=== PATIENT | male | born 1960 | race Caucasian/White ===

== ENCOUNTER → 2016-07-22 | Outpatient (CLI) | payer MEDICARE, OTHER ==
[2016-07-22 08:24] LABS: ALBUMIN 3.7 GM/DL (3.2-5.2); ALBUMIN/GLOBULIN RATIO 1.23 (1.00-1.93); ALKALINE PHOSPHATASE 123 U/L (45-117); ALT/SGPT 28 U/L (12-78); ANION GAP 4 MEQ/L (8-16); AST/SGOT 16 U/L (15-37); BILIRUBIN,TOTAL 0.3 MG/DL (0.2-1.0); BLOOD UREA NITROGEN 14 MG/DL (7-18); CALCIUM LEVEL 8.6 MG/DL (8.5-10.1); CARBON DIOXIDE LEVEL 30 MEQ/L (21-32); CHLORIDE LEVEL 107 MEQ/L (98-107); CHOLESTEROL LEVEL 247 MG/DL (<200); CREATININE FOR GFR 1.13 MG/DL (0.70-1.30); GLOMERULAR FILTRATION RATE > 60.0 (>56); GLUCOSE, FASTING 93 MG/DL (70-105); POTASSIUM SERUM 4.1 MEQ/L (3.5-5.1); SODIUM LEVEL 141 MEQ/L (136-145); TOTAL PROTEIN 6.7 GM/DL (6.4-8.2); TRIGLYCERIDES LEVEL 109 MG/DL (<150)
== END ==
LOC: M LAB 06:35
PROVIDERS: ATTEND Family Medicine
DX: E78.2 Mixed hyperlipidemia (principal); E55.9 Vitamin D deficiency, unspecified; N52.9 Male erectile dysfunction, unspecified

== ENCOUNTER → 2018-11-10 | Outpatient (REF) | payer MEDICARE | LOC: M SFHCPLAZ 11:52 | PROVIDERS: ATTEND Nurse Practitioner Adult Health | DX: R13.10 Dysphagia, unspecified (principal) | CPT/HCPCS: 36415; 84443; G0463 ==

== ENCOUNTER → 2018-11-24 | Outpatient (CLI) | payer MEDICARE ==
[~2018-11-24] MED LIST: ISOVUE-370 76% 100ML VIAL (Q9967) As Ordered ONE
--- NOTE | 2018-11-24 09:40 | REP ---
CT NECK WITH CONTRAST: HISTORY: Sore throat. CONTRAST: Isovue 370, 75 mL. COMPARISON: 02/24/2013 Calcification is present in the right tonsil. This is secondary to previous inflammatory disease. The naso-, lyn-, and hypopharynx, larynx and subglottic trachea are otherwise normal in appearance. The salivary and thyroid glands are normal in size and density. Small lymph nodes less than 1 cm in size are present in the internal jugular chains, posterior triangles, and submandibular areas. A well circumscribed hypodense mass is present in the right supraclavicular area, inferolateral to and contiguous with right supraclavicular area. The mass measures 1.3 cm in transverse x 2.2 cm in AP x 3.6 cm in cephalocaudal dimensions and slightly decreased in size compared to the previous study. The mass abuts the right common carotid and right subclavian arteries and right internal jugular vein. Atherosclerotic calcification is present at the left carotid bifurcation. Degenerative change is present in the cervical spine. Scarring is present in the lung apices. The visualized sinuses are clear. IMPRESSION: There has been slight decrease in size of right supraclavicular area mass compared to the previous study. Electronically Signed by Isaak Wilson MD 11/24/2018 09:56 A
== END ==
LOC: M RAD 08:06
PROVIDERS: ATTEND Otolaryngology
DX: Z72.0 Tobacco use (principal)
CPT/HCPCS: 70491; Q9967

== ENCOUNTER → 2018-12-21 | Outpatient (CLI) | payer MEDICARE ==
[~2018-12-21] MED LIST changes: +CVS50CAP PO; +D 202000 PO; +IBUP200C25 PO; -ISOVUE-370 76% 100ML VIAL (Q9967) As Ordered ONE; +NEXI1CAP4 PO
--- NOTE | 2018-12-21 16:14 | REP ---
COOKIE SWALLOW The procedure was performed under the direct supervision of Dr. Goetz. The procedure was performed with Zoya Nichols from speech pathology present. 5 ml aliquots of thin, pudding, soft solid, fruit, and solid consistency barium, as well as a barium pill were administered. There is no evidence of penetration or aspiration. A detailed report of this examination will be provided by speech pathology. 1 minute of fluoroscopy time was utilized for this procedure. Reviewed by SCOTT Carmen 12/21/2018 04:03 P Electronically Signed by Marco Goetz MD 12/21/2018 04:06 P
== END ==
LOC: M ST 14:56
PROVIDERS: ATTEND Otolaryngology
DX: R13.10 Dysphagia, unspecified (principal)

== ENCOUNTER 2019-05-11 13:17 | Day surgery (SDC) | payer MEDICARE ==
[~2019-05-11] VITALS: Ht 177.8 cm; Wt 57.2 kg
[~2019-05-11 13:17] MED LIST changes: +LIDOCAINE 2% INJ 100 MG/5 ML SDV (FOR ANES.) As Ordered ONE; +NS 1,000 ML IV ONE; +propofoL 200 MG/20 ML VIAL As Ordered ONE
[2019-05-11] MEDS ORDERED: fentaNYL 100 MCG/2 ML INJECTION (J3010) As Ordered ONE (14:24)
[2019-05-11 15:25] VITALS: BP 130/69
--- NOTE | 2019-05-11 15:25 | ROOR ---
Patient Name: Horace Rubio Procedure Date: 05/11/2019 2:13 PM Date of : 1960 Age: 58 Room: [facility] Gender: Male Note Status: Finalized Procedure: Upper GI endoscopy Indications: Dysphagia, Odynophagia, Heartburn Providers: Ken WATSON MD Referring MD: Stephanie WILEY NP Requesting Provider: Medicines: Monitored Anesthesia Care Complications: No immediate complications. Procedure: Pre-Anesthesia Assessment: - The heart rate, respiratory rate, oxygen saturations, blood pressure, adequacy of pulmonary ventilation, and response to care were monitored throughout the procedure. The Endoscope was introduced through the mouth, and advanced to the second part of duodenum. The upper GI endoscopy was performed with difficulty due to a partially obstructing mass. Successful completion of the procedure was aided by withdrawing the scope and replacing with the 'babyscope'. The patient tolerated the procedure well. Findings: A large, ulcerating mass was found at the gastroesophageal junction, 39 cm from the incisors. The mass was partially obstructing and partially circumferential (involving two thirds of the lumen circumference). This was biopsied with a cold forceps for histology. The exam of the stomach was otherwise normal. The examined duodenum was normal. Impression: - Partially obstructing, likely malignant esophageal tumor was found at the gastroesophageal junction. Biopsied. - The stomach was otherwise normal. - Normal examined duodenum. Recommendation: - Await pathology results. - Full liquid diet. - Refer to an oncologist at appointment to be scheduled. - Perform CT scan (computed tomography) of the chest with contrast at appointment to be scheduled. - Perform CT scan (computed tomography) of the abdomen with contrast at appointment to be scheduled. Ken Watson MD Ken WATSON MD 05/11/2019 3:24:59 PM Electronically signed by Ken WATSON MD Number of Addenda: 0 Note Initiated On: 05/11/2019 2:13 PM Estimated Blood Loss: Estimated blood loss: none.
== END 2019-05-11 15:40 | disposition home or self-care (01) ==
LOC: M OPP 13:17
PROVIDERS: ATTEND Internal Medicine Gastroenterology
DX: C15.9 Malignant neoplasm of esophagus, unspecified (principal); R13.10 Dysphagia, unspecified; R12 Heartburn; Z88.1 Allergy status to other antibiotic agents; F17.210 Nicotine dependence, cigarettes, uncomplicated
CPT/HCPCS: 43239; 88305; J3010

== ENCOUNTER → 2019-05-17 | Outpatient (CLI) | payer MEDICARE ==
[~2019-05-17] MED LIST changes: +GASTROGRAFIN SOLUTION 30ML (Q9963) As Ordered ONE; +ISOVUE-370 76% 100ML VIAL (Q9967) As Ordered ONE; -LIDOCAINE 2% INJ 100 MG/5 ML SDV (FOR ANES.) As Ordered ONE; -NS 1,000 ML IV ONE; -propofoL 200 MG/20 ML VIAL As Ordered ONE
--- NOTE | 2019-05-17 18:24 | REP ---
CT CHEST WITH CONTRAST: 05/17/2019. Clinical history: Near obstructing malignant appearing mass. Distal esophagus. Technique: Isovue 371 100 ml as of IV with scanning through the chest and both coronal and sagittal reconstructions provided. Comparison: CT chest 02/24/2013. Findings: Lung orellana are hyperinflated. There is apical pleuroparenchymal scarring bilaterally. There are a few scattered areas of pleural scarring or plaques bilaterally, unchanged. The upper lung zones. Mild cylindrical bronchiectatic changes are again seen. No effusion, acute infiltrate, parenchymal lung mass or pulmonary nodules. There is swelling one small bullae in the left lower lobe unchanged about 1.6 cm. Heart is not enlarged and no pericardial thickening or effusion. The aorta has some calcifications but no aneurysm or dissection. There is a soft tissue mass at the GE junction. There is a vertical length of 4.7 cm, transverse diameter of 3.1 cm and AP diameter is 5 cm and involves both sides of the GE junction and may be arising from the stomach or distal esophagus. Certainly involves the gastric fundus superiorly and medially extending posterior and anterior from the GE junction. There is no seven carinal, precarinal, AP window, hilar or mediastinal pathologic sized adenopathy. Prevascular space clear. No axillary or supraclavicular mass noted. The bone windows show the sternum, manubrium, medial clavicles, humeral heads and scapula grossly intact. The ribs and spine show no acute findings. Upper abdomen will be discussed in detail on the CT abdomen report. Impression: 1. There is an obstructing mass at the GE junction involving the distal esophagus and the fundus vertical length of at least 4.7 cm x 3.1 by there is involvement of the medial wall of the fundus below this. Esophagus above the mass was intact. There is no adenopathy in the mediastinum. 2. No parenchymal lung nodules or masses. 3. Bones intact. Electronically Signed by Sotero Coreas MD 05/17/2019 06:15 P
--- NOTE | 2019-05-17 19:02 | REP ---
CT ABDOMEN AND PELVIS WITH IV AND ORAL CONTRAST: 05/17/2019. Clinical history: An obstructing gastroesophageal junction mass. Comparison: CT chest today, CT chest 02/24/2013. Technique: Bolus of 100 mL Isovue 370, scanning through the abdomen and pelvis with coronal and sagittal reconstructions. Oral Gastrografin mixture 10 mL in 290 mL flavored water for two boluses as our bowel contrast protocol. Findings: Lung bases are clear and without pleural effusion. There is an obstructing mass at the GE junction involving both the distal esophagus and the gastric fundus. The mass is at least 5.1 cm AP by 4.7 cm vertical by 4.7 cm transverse on the abdominal CT and does involve some of the superior and medial wall of the gastric fundus. Stomach is distended with air. Oral contrast in mid to distal jejunum and extending to the distal left colon. Stool and gas are scattered through the colon without signs of colitis, diverticulitis or mass. There is a paucity of retroperitoneal and intraperitoneal fat indicating significant weight loss. No abdominal ascites. I see no perforation or free air on lung window review of all CT slices abdomen and pelvis. The liver is not enlarged. Spleen is not enlarged and there is no hepatic or splenic mass, intrahepatic biliary dilatation nor adjacent ascites. Adrenal glands grossly intact. Kidneys show symmetric enhancement without stone, cyst, solid mass or hydronephrosis. There is no hydroureter or ureteral stone. There is diffuse atherosclerotic calcifications aorta and branches. No periaortic or other retroperitoneal/intra-abdominal lymphadenopathy. Bone windows show advanced degenerative disc changes at L5-S1 with vacuum phenomenon narrowing the disc space and osteophytes anteriorly and posteriorly. The other disc space heights were intact. All vertebral body heights intact. No spondylolysis or spondylolisthesis. Visible ribs intact. CT pelvis: The sacrum, SI joints, pelvis and hips show minor degenerative changes but no destructive lesion or fractures. There is no pelvic lymphadenopathy or mass. Contrast filled small bowel loops are seen to the cecum. I do not see bladder mass, wall thickening or stone. Multiple pelvic phleboliths noted. No ventral or inguinal hernia. Impression: 1. GE junction mass, possibly arising from the esophagus or fundus without adenopathy in the upper abdomen or visible on this study. There is some prominent vessels in the gastrohepatic ligament region but I cannot separate out definite adenopathy. There is a paucity of fat to highlight lymph nodes however. 2. Liver and spleen without focal lesion. Adrenal glands intact. Kidneys without hydronephrosis or mass. 3. Atherosclerotic calcifications aorta without aneurysm. 4. Colon and small bowel loops without acute finding. 5. Bones without metastatic disease or acute finding. There are degenerative changes greatest L5-S1. Electronically Signed by Sotero Coreas MD 05/17/2019 08:20 P
== END ==
LOC: M RAD 15:26
PROVIDERS: ATTEND Internal Medicine Gastroenterology
DX: C15.5 Malignant neoplasm of lower third of esophagus (principal); K22.2 Esophageal obstruction
CPT/HCPCS: 71260; 74177; Q9963; Q9967

== ENCOUNTER → 2019-05-31 | Outpatient (CLI) | payer MEDICARE ==
[~2019-05-31] MED LIST changes: -GASTROGRAFIN SOLUTION 30ML (Q9963) As Ordered ONE; -ISOVUE-370 76% 100ML VIAL (Q9967) As Ordered ONE; +LIDO2.5C15 TOP; +META28.32 PO; +NICO14DI31 TOP; +ONDA8TAB8 PO; +OXYC1SOL3 PO; +TGT160SU PO
--- NOTE | 2019-05-31 10:40 | REP ---
PET/CT: HISTORY: Staging esophageal malignancy. COMPARISONS: Comparison CT chest May 17, 2019. Comparison CT abdomen pelvis May 17, 2019. TECHNIQUE: 48 minutes following the intravenous injection of a 9.23 mCi dose of F-18 FDG, three-dimensional PET scintigraphy is acquired from the skull base to the proximal thighs. Triplanar noncontrast CT scanning is acquired through the same anatomic range for attenuation correction, and image registration with scan parameters optimized to minimize radiation exposure to the patient. PET scintigraphy and CT datasets were fused and displayed on a workstation with multiplanar and projection display capability. PET/CT FINDINGS: Head and neck soft tissues are unremarkable. There is hypermetabolic uptake in the known mass in the gastroesophageal junction. Maximum standard uptake value here is 5.76. There is no visible hypermetabolic adenopathy. No abnormal hypermetabolic uptake is seen within the thorax. Incidental note is made of a moderate size pneumoperitoneum and there is mild ascites in the pelvic reflections. The patient has a gastrostomy tube visible in the left upper quadrant. There is mild postoperative radiotracer in deposition in an area of slight swelling in the right anterior abdominal wall. There is uptake along the gastrostomy tube insertion site. These changes, including the pneumoperitoneum and hydroperitoneum are felt to be consistent with recent placement of the gastrostomy tube. This should be correlated with the surgical history as I am not able to directly ascertain when the gastrostomy tube was placed. IMPRESSION: There is hypermetabolic uptake at the known mass in the gastroesophageal junction. No other hypermetabolic metastatic focus is seen. Incidental note is made of a hydro pneumoperitoneum which is most compatible with recent placement of a gastrostomy tube. This should be correlated with the dates of surgical history which I am not able to directly ascertain from the provided documentation. Preliminary findings are provided at the morning of the study. Electronically Signed by Saad Timmons MD 05/31/2019 04:06 P
== END ==
LOC: M PLARAD 07:25
PROVIDERS: ATTEND Physician Assistant Surgical
DX: C15.8 Malignant neoplasm of overlapping sites of esophagus (principal)

== ENCOUNTER → 2019-06-27 | Outpatient (CLI) | payer MEDICARE, BC ==
[~2019-06-27] MED LIST changes: -LIDO2.5C15 TOP; -ONDA8TAB8 PO
--- NOTE | 2019-06-28 13:19 | RADONC ---
RADIATION ONCOLOGY CONSULTATION NOTE DATE: 06/27/2019 CHART NUMBER: [id number] DIAGNOSIS: Gastroesophageal junction adenocarcinoma. STAGE: IIIB, T3, N1, M0, grade 3. ECOG PERFORMANCE STATUS: 1. CONSULTATION NOTE: Mr. 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 HISTORY OF PRESENT ILLNESS: The patient was in his usual state of health but sometime early last year he began developing some difficulty swallowing solid foods. This progressed until the fall when he began having difficulty swallowing liquids. A CT scan of the neck was done on 02/24/2013 and showed a 2.4 cm x 2.8 cm x 3.7 cm mass in the right supraclavicular area contiguous with the right thyroid lobe. This showed no change in size from previous study dated 07/04/2007. It was therefore stable for at least 5 years. The patient's symptoms progressed and he continued losing weight. He was seen by Dr. Watson and on 05/11/2019 upper endoscopy was undertaken. The patient was found to have a tumor involving the distal esophagus and gastroesophageal junction. Pathology revealed a poorly differentiated invasive adenocarcinoma. Endoscopic gastroduodenoscopy with endoscopic ultrasound was undertaken on June 21, 2019 and the patient was found to have a distant esophageal malignancy (stage IIIB). He has lost a significant amount of weight and today weighs 123.6 pounds. A feeding tube has been placed. PAST MEDICAL HISTORY: The patient's past medical history is largely noncontributory. He has been in general good health. ALLERGIES: The patient is allergic to ERYTHROMYCIN. SOCIAL HISTORY: The patient has a 45 pack-year smoking history having smoked for well over 30 years. FAMILY HISTORY: The patient's family history is positive for a father with prostate cancer which metastasized and an uncle with liver cancer. REVIEW OF SYSTEMS: The patient's review of systems is positive for a significant weight loss. His original weight was approximately 155 pounds about a year ago. He has difficulty swallowing even liquids. His review of systems is otherwise noncontributory. He denies nausea, vomiting, fevers, chills, night sweats, diplopia, headaches, anxiety or depression, anorexia, weight loss, visual disturbances, chest pain, urinary or bowel difficulties, bone pain, or neurological problems. PHYSICAL EXAMINATION: The patient is a cachectic, white male who appears chronically ill. HEENT exam: Is normocephalic, atraumatic. Extraocular movements are intact. There is no palpable cervical, supraclavicular, infraclavicular, axillary or inguinal lymphadenopathy present. His lungs have distant breath sounds bilaterally, but are generally clear to auscultation and percussion. His heart has regular rate and rhythm. His abdomen is benign with no hepatosplenomegaly, masses or tenderness. Skeletal examination reveals no tenderness to pressure or percussion of the bony skeleton. Extremities: Reveal no clubbing, cyanosis or edema. Neurologic exam: Is grossly intact to sensory and motor. ASSESSMENT: The patient is presenting to us today for consideration of external beam radiation therapy combined with chemotherapy as a therapeutic option. Following which he will be reevaluated at the [facility] in [place] by Dr. Denise Conde MD for possible resection. I do believe the patient is a candidate for this and I have so informed him. I have discussed with the patient in detail the potential benefits as well as possible acute and chronic sequelae of external beam radiation therapy. We have discussed the logistics of treatment planning, simulation and subsequent fractionated daily radiation treatments. I am scheduling the patient for the next available simulation slot and radiation treatments will begin subsequently. We will coordinate his care with his medical oncologist, Dr. Swanson. Thank you for allowing us to participate in the care of this very pleasant gentleman. cc: FANI Saravia MD Moshim Kukar, MD David Reindl, MD Bonnie Servage, YAMIL
== END ==
LOC: M ONCR 09:42
PROVIDERS: ATTEND Radiology Radiation Oncology
DX: C15.9 Malignant neoplasm of esophagus, unspecified (principal)

== ENCOUNTER → 2019-07-07 | Outpatient (CLI) | payer MEDICARE ==
[~2019-07-07] MED LIST changes: +LIDOCAINE 1% MDV 20ML VIAL As Ordered ONE; +MIDAZOLAM INJ 2 MG/2 ML VIAL (J2250) As Ordered ONE; +ceFAZolin 2 GM/D5W 50 ML IV BAG (J0690 PER 500MG) As Ordered ONE; +diphenhydrAMINE INJ 50MG/ML VIAL (J1200) As Ordered ONE; +fentaNYL 100 MCG/2 ML INJECTION (J3010) As Ordered ONE
--- NOTE | 2019-07-07 13:09 | IRHP ---
[facility] IR Pre-Procedure H & P General Date of Service: Jul 07, 2019 Procedure: Same Day Surgery Interval History and Physical I have seen the patient and reviewed last H & P performed within 30 days. There is no significant interval change. History of Present Illness Chief Complaint The patient is a 58-year-old male admitted with a reason for visit of Esophageal Ca. PRE-PROCEDURE DIAGNOSIS: esophageal ca HEART: normal rate. LUNGS: normal breathing at rest. ASA Classification ASA Classification: III-Severe systemic dis. Mallampati Score: II NPO: Yes Problems with prior sedation: No Obstructive Sleep Apnea: No Plan moderate sedation Allergies Coded Allergies: erythromycin base (Verified Allergy, Intermediate, TONGUE SWELLING, 04/27/19) Home Medications Scheduled Esomeprazole Magnesium (Nexium 24Hr), 20 MG PO DAILY, (Reported) Nicotine (Nicotine Patch), 1 PATCH TOP DAILY, (Reported) Psyllium Husk (with Sugar) (Metamucil Powder), 10 ML PO BID, (Reported) Scheduled PRN Docusate Sodium (Stool Softener), 50 MG PO DAILYPRN PRN for CONSTIPATION, (Reported) Oxycodone HCl (Oxycodone HCl), 5 MG PO DAILYPRN PRN for PAIN, (Reported) Miscellaneous Medications Acetaminophen (Children's Acetaminophen), 160 MG PO, (Reported) VS, I&O, 24H, Fishbone Vital Signs/I&O Vital Signs Date Time Temp Pulse Resp B/P (MAP) Pulse Ox O2 Delivery O2 Flow Rate FiO2 07/07/19 12:50 58 16 100 Nasal Cannula 2 07/07/19 11:56 98.0 DAVE HINSON MD Jul 07, 2019 13:09
--- NOTE | 2019-07-07 13:10 | POST-OPPD ---
Postoperative Procedure Note Date Of Procedure: Jul 07, 2019 Time Of Procedure: 13:09 PREOPERATIVE DIAGNOSIS: esophageal ca POSTOPERATIVE DIAGNOSIS: same FINDINGS: patent right IJ PROCEDURE: right side port placement SURGEON: susan ANESTHESIA: mod sed ESTIMATED BLOOD LOSS: < 5 ml COMPLICATIONS: none POSTOPERATIVE CONDITION: stable DAVE HINSON MD Jul 07, 2019 13:10
--- NOTE | 2019-07-07 13:20 | REP ---
IR Ultrasound and fluoroscopy-guided port placement. IR Ultrasound of the neck. IR Moderate sedation. Clinical information: Esophageal cancer. Physician: Dr. Dowell. Procedure: The patient was advised of the benefits, risks, and alternatives of the procedure and informed consent was obtained. A time-out was performed with verification of the patient's name, MRN, site of procedure and type of procedure to be performed. The patient was positioned in the supine position on the angiographic table. The site was prepped and draped in the usual sterile fashion. Moderate sedation was performed by the physician including the presence of an independent trained observer who assisted and monitored the patient's level of consciousness and physiologic status. Following the administration of fentanyl and Versed , the physician spent 45 minutes of continuous face to face time with the patient. Ultrasound of the neck reveals a patent and compressible right internal jugular vein. A substation operator conversion radiograph reveals no gross abnormality. The neck and anterior chest wall were anesthetized with lidocaine. The right internal jugular vein was accessed using a microintroducer needle under ultrasound guidance, via a lateral approach. An 018 wire was advanced into the superior vena cava, the needle was removed and a microsheath was placed. An Amplatz wire was then passed into the inferior vena cava. An incision at the internal jugular vein access site and anterior chest wall were made using a scalpel. An incision was made at the anterior chest wall. A small pocket was created using a combination of blunt and sharp dissection. A tunneling device was then used to pass the catheter from the pocket to the neck puncture site. An 8-[place] [employer] dynamics Smart power port was then positioned in the pocket. The catheter was then measured and cut. The introducer sheath was exchanged for a peel-away sheath. The catheter was passed through the peel-away sheath into the internal jugular vein and the peel-away sheath was removed. The port tip was positioned at the cavoatrial junction. The port was then accessed with a Fry needle. The port flushes and aspirates well. The puncture site in the neck was closed. The chest wall incision was then closed with 2-0 Vicryl and 4-0 Monocryl. Glue and Steri-Strips were applied. A sterile dressing was then applied. The patient tolerated the procedure well and was returned to the PRU in stable condition. Estimated blood loss: <5 ml. Complications: None. Conclusion: 1. Successful placement of an 8-[place] Angio dynamics Smart power port via the right internal jugular vein. The port is ready for immediate use. 2. Patient to follow up in IR clinic in 2 weeks. Thank you for this referral. Electronically Signed by Marry Dowell MD 07/07/2019 01:13 P
[2019-07-07 15:00] VITALS: BP 114/55
== END ==
LOC: M IRPRO 11:23
PROVIDERS: ATTEND Internal Medicine Medical Oncology
DX: C15.9 Malignant neoplasm of esophagus, unspecified (principal); Z88.1 Allergy status to other antibiotic agents
CPT/HCPCS: 36561; 99152; 99153; C1769; C1788; C1894; J0690; J1200; J1642; J1644; J2250; J3010

== ENCOUNTER → 2019-07-18 | Outpatient (RCR) | payer MEDICARE, BC ==
--- NOTE | 2019-07-05 07:16 | RADONC ---
RADIATION ONCOLOGY SIMULATION NOTE DATE: 07/04/2019 CHART NUMBER: [id number] DIAGNOSIS: Gastroesophageal junction adenocarcinoma. STAGE: IIIB, T3, N0, M0, grade 3. ECOG PERFORMANCE STATUS: 1. SIMULATION NOTE: The patient has been simulated today for his known gastroesophageal junction adenocarcinoma. He was brought into the simulator room and placed on the table in a supine position. He was positioned appropriately for simulation and an immobilization device was constructed for the patient. He tolerated the simulation quite well with no significant untoward side effects. During the simulation 0.3 centimeter images were obtained through the area of interest for appropriate contouring both of the planned treatment volume as well as the normal surrounding structures. A treatment plan will be generated by dosimetry. I was there during the entire process. The patient tolerated the simulation well with no significant untoward side effects and no further questions.
--- NOTE | 2019-07-12 09:40 | RADONC ---
RADIATION ONCOLOGY SIMULATION NOTE DATE OF SERVICE: 07/11/2019 CHART NUMBER: [id number]. SIMULATION NOTE: Mr. Rubio had been simulated for his GE junction cancer. Unfortunately, the CT simulation orellana were not high enough for treatment planning purposes. Therefore, we brought the patient back today for re-simulation. He was taken to our CT simulator, and simulation was completed without difficulty or discomfort. We used the same immobilization device we had previously created. I was physically present throughout the course of the CT simulation.
--- NOTE | 2019-07-17 14:10 | RADONC ---
RADIATION ONCOLOGY PROGRESS NOTE DATE: 07/17/2019 CHART NUMBER: [id number] PROGRESS NOTE: Mr. Rubio was taken to the linear accelerator today and underwent his first fraction of radiation for a dose of 180 cGy to his GE junction. His first fraction of radiation was tolerated without difficulty or discomfort. Mr. Rubio's review of systems remained unchanged. Overall he is doing quite well. On physical exam, clearly there is no skin change secondary to radiation. The remainder of his physical exam remained unchanged. Mr. Rubio tolerated his first fraction without difficulty and radiation is scheduled to continue as scheduled.
[~2019-07-18] MED LIST changes: +LIDO2.5C15 TOP; -LIDOCAINE 1% MDV 20ML VIAL As Ordered ONE; -MIDAZOLAM INJ 2 MG/2 ML VIAL (J2250) As Ordered ONE; +ONDA8TAB8 PO; -ceFAZolin 2 GM/D5W 50 ML IV BAG (J0690 PER 500MG) As Ordered ONE; -diphenhydrAMINE INJ 50MG/ML VIAL (J1200) As Ordered ONE; -fentaNYL 100 MCG/2 ML INJECTION (J3010) As Ordered ONE
== END ==
LOC: M ONCR 07-04 10:16
PROVIDERS: ATTEND Radiology Radiation Oncology
DX: C15.9 Malignant neoplasm of esophagus, unspecified (principal)

== ENCOUNTER → 2019-07-22 | Outpatient (REF) | payer MEDICARE, BC ==
[2019-07-22 17:32] LABS: CLOSTRIDIUM DIFFICILE PCR NEGATIVE (NEGATIVE)
== END ==
LOC: M ONCM 16:42
PROVIDERS: ATTEND Internal Medicine Medical Oncology
DX: C15.5 Malignant neoplasm of lower third of esophagus (principal)

== ENCOUNTER → 2019-08-17 | Outpatient (RCR) | payer MEDICARE, BC ==
--- NOTE | 2019-07-25 08:10 | RADONC ---
RADIATION ONCOLOGY PROGRESS NOTE DATE: 07/24/2019 CHART NUMBER: [id number] Mr. Rubio is presently a dose of 1080 cGy to his gastroesophageal (GE) junction and is tolerating his treatments quite well at this point is having no problems. He did report that he had some diarrhea and he was discussing diarrhea with our nurse when I entered the room. I asked how any bowel movements he has had today and he has not had any. He reports that he did not have a bowel movement yesterday. He only had to bowel movements on Wednesday. I congratulated him on resolution of his diarrhea. He had no other complaints on his review of systems. Physical examination was deferred as per COVID-19 restrictions. Mr. Rubio has improved his diarrhea and is tolerating his treatments quite well. Radiation will continue as scheduled.
--- NOTE | 2019-07-31 16:24 | RADONC ---
RADIATION ONCOLOGY PROGRESS NOTE DATE: 07/31/2019 CHART NUMBER: [id number] PROGRESS NOTE: Mr. Rubio is presently at a dose of 1980 cGy to his GE junction and is tolerating his treatments though with some difficulty. His weight today is down 0.8 of a pound. He is complaining of some difficulty with swallowing. He still has some diarrhea. Otherwise, he is generally doing okay with the radiation. REVIEW OF SYSTEMS: The review of systems is positive for loose bowel movements as well as discomfort upon swallowing and some weakness, but is otherwise noncontributory. Denies nausea, vomiting, fevers, chills, night sweats, diplopia, headaches, anxiety or depression, anorexia, weight loss, visual disturbances, chest pain, urinary or bowel difficulties, bone pain, or neurological problems. PHYSICAL EXAMINATION: The patient's skin is in good condition with no evidence of moist or dry desquamation. The remainder of his physical exam is unchanged except for a 0.8 pound weight loss to 120.8 pounds. Radiation will continue as scheduled.
--- NOTE | 2019-08-08 06:20 | RADONC ---
RADIATION ONCOLOGY PROGRESS NOTE DATE: 08/07/2019 CHART #; [id number] Mr. Rubio is presently at a dose of 2880 cGy to his GE junction and is tolerating treatments with some difficulty. He is having discomfort upon swallowing and is largely using his feeding tube. REVIEW OF SYSTEMS: The patient's review of systems is positive for his discomfort upon swallowing as well as a 1-pound weight loss, but is otherwise noncontributory. Denies nausea, vomiting, fevers, chills, night sweats, diplopia, headaches, anxiety or depression, anorexia, weight loss, visual disturbances, chest pain, urinary or bowel difficulties, bone pain, or neurological problems. PHYSICAL EXAMINATION: As noted above, the patient lost approximately 1 pound in the past week. He is down a total of 2 pounds since 07/24/2019. His physical exam is otherwise unchanged. His skin is in good condition with no evidence of moist or dry desquamation. Mr. Rubio is tolerating treatments fairly well and radiation will continue as scheduled.
--- NOTE | 2019-08-15 08:56 | RADONC ---
RADIATION ONCOLOGY PROGRESS NOTE DATE: 08/14/2019 CHART NUMBER: [id number] PROGRESS NOTE: Mr. Rubio is presently at a dose of 3780 centigrade to his GE junction and is tolerating treatments with some difficulty. He reports esophagitis, which he is using Miracle Mouthwash as well as Nexium. He also reports that he has difficulty with nausea if he takes more than 3 cans of Ensure a day. REVIEW OF SYSTEMS: The patient's review of systems is positive for a little less than a 2 pound weight loss over the past week. He has the above-mentioned side effects. His review of systems is otherwise noncontributory. Denies nausea, vomiting, fevers, chills, night sweats, diplopia, headaches, anxiety or depression, anorexia, visual disturbances, chest pain, urinary or bowel difficulties, bone pain, or neurological problems. PHYSICAL EXAMINATION: The patient's skin is in good condition with no evidence of moist or dry desquamation. The remainder of his physical exam remains unchanged. Mr. Rubio is scheduled for completion on Wednesday.
[~2019-08-17] MED LIST changes: +LOPE-39 PO; +LOPE1SUS PO; +MAGICMW
== END ==
LOC: M ONCR 07-19 10:16
PROVIDERS: ATTEND Radiology Radiation Oncology
DX: C15.9 Malignant neoplasm of esophagus, unspecified (principal)

== ENCOUNTER 2019-08-18 10:25 | Outpatient (RCR) | payer MEDICARE, BC ==
[~2019-08-18 10:25] MED LIST changes: -MAGICMW
[2019-08-21] MEDS ORDERED: MAGICMW (11:45)
--- NOTE | 2019-08-23 00:29 | RADONC ---
RADIATION ONCOLOGY TREATMENT SUMMARY DATE: 08/18/2019 CHART NUMBER: [id number] DIAGNOSIS: Gastroesophageal junction adenocarcinoma. STAGE: IIIB, T3, N1, M0, grade 3 ECOG PERFORMANCE STATUS: 1 TREATMENT SUMMARY: Mr. 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 We treated the patient to his GE junction for a total dose of 4500 cGy delivered in 25 fractions of 180 cGy each over 32 elapsed days from 07/17/2019 through 08/18/2019. The patient's GE junction was treated on a linear accelerator utilizing a 15 MV photon beam via 3D conformal technique. Mr. Rubio tolerated his treatments quite well and was able to complete therapy as prescribed without interruption. The patient is scheduled to see me again in 1 month for further followup. He will also continue to be followed by his other physicians as well. cc: Leida Elizondo, MD Denise Smallwood MD David Reindl, MD Bonnie Servage, YAMIL
[2019-09-13] MEDS ORDERED: SUCR1TA PO (10:29)
== END 2019-09-17 ==
LOC: M ONCR 10:25
PROVIDERS: ATTEND Radiology Radiation Oncology
DX: C15.9 Malignant neoplasm of esophagus, unspecified (principal)

== ENCOUNTER 2019-08-31 11:52 | Outpatient (CLI) | payer MEDICARE, BC ==
[~2019-08-31] VITALS: Ht 175.3 cm; Wt 50.0 kg
[~2019-08-31 11:52] MED LIST changes: +KCL 10MEQ IN D5/0.45NS 1000ML 1,000 ML IV SCH; +MAGICMW; +SODIUM CHLORIDE 0.9% INJ 10 ML SYR IV PRN
[2019-08-31 12:00] VITALS: BP 81/50
[2019-08-31 14:05] VITALS: BP 81/50
[2019-09-01] MEDS ORDERED: SODIUM CHLORIDE 0.9% INJ 10 ML SYR IV SCH (09:00)
== END 2019-08-31 14:05 | disposition home or self-care (01) ==
LOC: M INFU 11:52
PROVIDERS: ATTEND Internal Medicine Medical Oncology
DX: C15.9 Malignant neoplasm of esophagus, unspecified (principal); Z88.0 Allergy status to penicillin
CPT/HCPCS: 96365; 96366; J1642

== ENCOUNTER → 2020-01-17 | Outpatient (CLI) | payer MEDICARE, BC ==
[~2020-01-17] MED LIST changes: +AMOX875T2 PO; -KCL 10MEQ IN D5/0.45NS 1000ML 1,000 ML IV SCH; -SODIUM CHLORIDE 0.9% INJ 10 ML SYR IV PRN; +SUCR1TA PO
--- NOTE | 2020-01-17 13:42 | RADONC ---
Radiation Oncology Hx/FUP Radiation Oncology Consult Date of Service: Jan 17, 2020 Pt Identifier Horace Rubio is a 59 year old male called for a telephone followup visit today at the department of radiation oncology for a history of [id number] adenocarcinoma of the GEJ. He completed chemoradiation to 45 Gy in 25 fractions on 08/18/19. He then underwent esophagectomy at [facility] with Dr. Conde on 10/12/19. He had a good partial response to neoadjuvant therapy on final pathology. Diagnosis/Treatment History Oncologic History As above Interval History States he is eating well, small frequent meals and gaining weight. He has no h emoptysis or cough. He has no CHÁVEZ or CP. He does not that the skin on the anterior chest over the radiation port has some pigmentation change and is drier and grinder tender that surrounding skin. No other skin concerns. No residual fatigue. No diarrhea, N, V. All PO intake. Current Therapy Surveillance Stage Pathologic IIIB [id number] Social History: 45 pk year former smoker quit 2019 No alcohol use Allergies / Meds Allergies: Coded Allergies: erythromycin base (Verified Allergy, Intermediate, TONGUE SWELLING, 04/27/19) Home Meds Active Scripts Lidocaine/Prilocaine (Lidocaine-Prilocaine Cream) 2.5%/2.5% Cream..g., 1 DOSE TOP ASDIRECTED, #30 GRAMS 1 Refill Apply dime size to port area. Do not rub in, cover with saran wrap to protect clothing. Prov:Luba Swanson MD 07/20/19 Reported Medications Amoxicillin/Potassium Clav (Amox-Clav 875-125 mg Tablet) 1 Each Tablet, 1 TAB PO BID for 7 Days 11/06/19 Magic Mouthwash (First-Mouthwash Blm) 1 Ea Susp 08/21/19 Loperamide HCl (Loperamide) 1 Mg/7.5 Ml Liquid, 1 MG PO PRN PRN for DIARRHEA 08/01/19 Oxycodone HCl (Oxycodone HCl) 5 Mg/5 Ml Solution, 5 MG PO DAILYPRN PRN for PAIN, CONTAINER 06/27/19 Acetaminophen (Children's Acetaminophen) 160 Mg/5 Ml Oral.susp, 160 MG PO 06/27/19 Nicotine (Nicotine Patch) 14 Mg/24 Hr Patch.td24, 1 PATCH TOP DAILY for smoking cessation for 28 Days, #28 PATCH 06/09/19 Review of Systems Review of Systems Constitutional: Denies: Chills, Fever, Malaise, Fatigue, Weight Loss Eyes: Denies: Pain, Vision change HEENT: Denies: Head Aches, Sinus Congestion, Sore Throat Skin: Denies: Rash, Lesions Pulmonary: Denies: Dyspnea, Cough Cardiovascular: Denies: Chest Pain, Palpitations Gastrointestinal: Denies: Nausea, Vomiting, Abdominal Pain Genitourinary: Denies: Dysuria, Frequency Hematologic: Denies: Bruising, Bleeding Excessively Endocrine: Denies: Polydipsia, Polyphagia Musculoskeletal: Reports: Back pain; Denies: Neck pain, Shoulder pain, Leg pain Neurological: Denies: Weakness, Numbness, Change in Speech Psych: Reports: Mood Normal; Denies: Anxiety, Depression Physical Examination Vital Signs Not obtained telehealth General Exam: Positive: Alert, Cooperative, No Acute Distress Neuro Exam: Positive: Normal Speech Psych Exam: Positive: Mental status NL, Mood NL, Memory Intact, Oriented x 3 Diagnostic and Laboratory Diagnostic Review Radiologic images, relevant labs and pathology reports were personally reviewed and discussed with Mr. Rubio. Assessment and Plan Impression Assessment Mr. Rubio is a 59 year old male called for a telephone followup visit today at the department of radiation oncology for a history of [id number] adenocarcinoma of the GEJ. He completed chemoradiation to 45 Gy in 25 fractions on 08/18/19. He then underwent esophagectomy at [facility] with Dr. Conde on 10/12/19. He had a good partial response to neoadjuvant therapy on final pathology. He has no significant complaints today. I explained that the skin changes he has noted over the radiation ports are normal and not cause for concern. He is eating well and gaining weight which is reassuring. He has not had imaging since surgery. He is scheduled to see Dr. Cardenas here on 02/05/[address] Conde in [place] in March. I recommended that we obtain CT chest abdomen and pelvis with contrast here now to serve as a post-operative baseline and to assess for recurrence. He may also undergo imaging and EGD at [facility] as Dr. Conde sees appropriate. Generally q3-6 months for the first 2 years is reasonable for scans. I would be more comfortable following the patient with in-house imaging as he lives here in [place] and Dr. Cardenas and myself are based here (thus we are inherently more accessible to the patient). Patient agrees with the plan. Performance Status ECOG [address] chest abdomen and pelvis with contrast now Sees Dr. Cardenas in January [address] Conde in March 2020 Follow up with me in 6 months time Mr. Rubio was encouraged to call with questions or concerns in the interim period. DOUGLAS GUZMAN MD Jan 17, 2020 13:42
== END ==
LOC: M ONCR 13:04
PROVIDERS: ATTEND General Practice
DX: C15.9 Malignant neoplasm of esophagus, unspecified (principal)

== ENCOUNTER → 2020-01-30 | Outpatient (CLI) | payer MEDICARE, BC ==
[~2020-01-30] MED LIST changes: +GASTROGRAFIN SOLUTION 30ML (Q9963) As Ordered ONE; +ISOVUE-370 76% 100ML VIAL As Ordered ONE
--- NOTE | 2020-02-02 14:21 | REP ---
CONTRAST ENHANCED CHEST CT: 01/30/20 CLINICAL: Esophageal cancer. TECHNIQUE: Axial contrast enhanced images from the thoracic inlet to the upper abdomen with coronal and sagittal reformations using 100cc Isovue 370 intravenous contrast material followed by CT of the abdomen and pelvis. COMPARISON: 05/17/19, 02/24/13. FINDINGS: The patient has undergone subsequent esophagectomy and gastric pull-through procedure. The mediastinum is otherwise relatively unremarkable and without obvious significant adenopathy. Thoracic aorta and pulmonary vasculature and/pericardium are grossly normal. Thyroid gland is unremarkable. The bilateral lung orellana demonstrate stable chronic bi-apical and subtle subpleural scarring essentially unchanged as compared to 2013. The lung orellana are otherwise well aerated and clear without consolidation, nodule or mass lesion. No obvious metastatic focus. No pleural effusion or pneumothorax. Tracheobronchial tree is patent. Musculoskeletal structures demonstrate age related changes without focal osseous abnormality. IMPRESSION: 1. Recent esophagectomy and gastric pull-through procedure. 2. Chronic bi-apical and subtle subpleural scarring essentially unchanged compared to 2013. 3. No acute mediastinal or pleuroparenchymal process otherwise appreciated and no obvious evidence for recurrence or metastatic disease noted. MTDD
--- NOTE | 2020-02-02 14:23 | REP ---
CONTRAST ENHANCED CT OF THE ABDOMEN AND PELVIS: 01/30/20 CLINICAL: History of esophageal cancer. COMPARISON: 05/17/19. TECHNIQUE: Axial contrast enhanced images from the lung bases to the pubic symphysis using oral (per protocol) and 100cc Isovue 370 intravenous contrast material with coronal and sagittal reformations. Delayed images of the abdomen obtained. FINDINGS: The patient is noted to be status post gastric pull-through procedure. Liver, spleen, pancreas, gallbladder, bilateral adrenal glands and kidneys are normal. There is no evidence for bowel obstruction or obvious acute inflammatory process to the enteric system. Normal terminal ileum and appendix are noted in the right lower quadrant. A few scattered sigmoid diverticula noted without acute diverticulitis. The pelvis demonstrates normal bladder and age appropriate prostate/seminal vesicles. No ascites. No free air. No obvious adenopathy or focal mass lesion. Atherosclerotic changes to the aorta and vasculature noted without aneurysm or dissection. Musculoskeletal structures demonstrate age related degenerative changes primarily involving the lower lumbar spine without acute osseous abnormality. IMPRESSION: 1. Evidence for prior gastric pull-through procedure. 2. No evidence for acute abdominopelvic pathology appreciated. No evidence for obvious recurrence for metastatic disease. 3. No ascites, adenopathy, or focal inflammatory stranding. MTDD
== END ==
LOC: M RAD 15:10
PROVIDERS: ATTEND General Practice
DX: C15.9 Malignant neoplasm of esophagus, unspecified (principal)
CPT/HCPCS: 71260; 74177; J1642; Q9963; Q9967

== ENCOUNTER → 2020-07-23 | Outpatient (REF) | payer MEDICARE, BC ==
[~2020-07-23] MED LIST changes: -GASTROGRAFIN SOLUTION 30ML (Q9963) As Ordered ONE; -ISOVUE-370 76% 100ML VIAL As Ordered ONE; +NEXI20CA33 PO
[2020-07-23 13:54] LABS: CREATININE FOR GFR 0.89 MG/DL (0.70-1.30); GLOMERULAR FILTRATION RATE > 60.0 (>49)
== END ==
LOC: M LAB REF 12:18
DX: Z51.81 Encounter for therapeutic drug level monitoring (principal)

== ENCOUNTER → 2020-07-29 | Outpatient (CLI) | payer MEDICARE, BC ==
[~2020-07-29] MED LIST changes: +GASTROGRAFIN SOLUTION 30ML (Q9963) As Ordered ONE; +ISOVUE-370 76% 100ML VIAL As Ordered ONE
--- NOTE | 2020-07-29 15:34 | REP ---
INDICATION: MALIGNANT NEOPLASM OF CARDIA. COMPARISON: 01/30/2020 the latest prior. TECHNIQUE: 100 cc Isovue 370. FINDINGS: Postoperative changes are again identified from previous gastric pull-through procedure status quo. No mediastinal or hilar adenopathy has developed. There are no pleural or pericardial effusions. There is no change in the appearance of the imaged osseous structures. Evaluation of the lung orellana shows rather heavy but stable appearing biapical pleuroparenchymal scarring. No new abnormal nodules, masses, or opacities have developed. There is cylindrical bronchiectasis which appears stable. IMPRESSION: Stable CT examination of the chest. <Electronically signed by Rao Castellanos > 07/29/20 [id number]
--- NOTE | 2020-07-29 15:39 | REP ---
INDICATION: MALIGNANT NEOPLASM OF CARDIA. COMPARISON: 01/30/2020 the latest prior TECHNIQUE: 100 cc Isovue 370 and oral bowel preparatory contrast administration. FINDINGS: The liver, gallbladder, spleen, pancreas, adrenal glands, and kidneys are again seen to be within normal limits. The abdominal aorta and para aortic regions are unchanged. Nonenlarged lymph nodes are noted status quo. There is no free fluid or free air. There is no evidence of a mass or adenopathy. There is no significant change in appearance of the bowel loops or the mesenteries. Bone window technique throughout the examination shows no change in the osseous structures. IMPRESSION: Stable CT examination of the abdomen and pelvis. <Electronically signed by Rao Castellanos > 07/29/20 [id number]
== END ==
LOC: M RAD 13:17
PROVIDERS: ATTEND Physician Assistant Surgical
DX: C16.0 Malignant neoplasm of cardia (principal)
CPT/HCPCS: 71260; 74177; Q9963; Q9967

== ENCOUNTER → 2020-10-10 | Outpatient (CLI) | payer MEDICARE, BC ==
[~2020-10-10] VITALS: Ht 177.8 cm; Wt 68.0 kg
[~2020-10-10] MED LIST changes: -GASTROGRAFIN SOLUTION 30ML (Q9963) As Ordered ONE; -ISOVUE-370 76% 100ML VIAL As Ordered ONE; +LIDO1CRE42 TOP; -LIDO2.5C15 TOP; +LIDOCAINE 1% MDV 20ML VIAL As Ordered ONE; +MIDAZOLAM INJ 2MG/2ML VIAL (J2250 PER 1MG) As Ordered ONE; +NS 1,000 ML IV SCH; +ceFAZolin 2 GM/D5W 50 ML IV BAG (J0690 PER 500MG) As Ordered ONE; +ceFAZolin SOD 2 GM in IV 1 EA IV ONE; +diphenhydrAMINE 50MG/ML VIAL (J1200) As Ordered ONE; +fentaNYL 100 MCG/2 ML INJECTION (J3010) As Ordered ONE
[2020-10-10 15:43] VITALS: BP 134/77
--- NOTE | 2020-10-14 13:44 | IRPON ---
IR Postoperative Note Date Of Procedure: Oct 10, 2020 Time Of Procedure: 16:00 IR Postoperative Note IR Port Removal / Explant. IR Moderate sedation. Clinical Information:Esophageal cancer. Treatment complete. Patient would like port removed. Physician: Dr. Dowell Procedure: The patient was advised of the benefits, risks, and alternatives of the procedure and informed consent was obtained. A time out was performed with verification of the patient's name, MRN, site of procedure, and type of procedure to be performed. The patient was positioned in the supine position on the angiographic table. The site was prepped and draped in the usual sterile fashion. Moderate sedation was performed by the physician including the presence of an independent trained RN who assisted in monitoring the patient's level of consciousness and physiological status. Following the administration of fentanyl and Versed the physician spent 30 minutes of continuous [id number] time with the patient. A allergy and immunology specialist radiograph reveals a right sided port. The soft tissues overlying the port were anesthetized with lidocaine. An incision was made over the port using a 15 blade scalpel in the location of the prior incision. The catheter was then freed with blunt dissection and extracted. Pressure was applied to obtain hemostasis. The port was then freed with blunt dissection and subsequently removed. There were no signs of infection. After hemostasis was achieved, the incision was closed with interrupted deep 3-0 Vicryl sutures and subcuticular Monocryl suture followed by glue and steri-strips. The site was covered with a sterile dressing. The patient tolerated the procedure well and was returned to the PRU in stable condition. EBL:Less than 5 mL Complications:None. Conclusions: 1. Successful explant of a right-sided port. 2. No signs of infection. Thank you for this referral DAVE DOWELL MD Oct 14, 2020 13:44
== END ==
LOC: M IRPRO 12:55
PROVIDERS: ATTEND Radiology Diagnostic Radiology
DX: Z45.2 Encounter for adjustment and management of vascular access device (principal); C15.9 Malignant neoplasm of esophagus, unspecified

== ENCOUNTER → 2020-10-29 | Outpatient (POV) | payer MEDICARE, BC ==
[~2020-10-29] VITALS: Ht 180.3 cm; Wt 62.7 kg
[~2020-10-29] MED LIST changes: -LIDOCAINE 1% MDV 20ML VIAL As Ordered ONE; -MIDAZOLAM INJ 2MG/2ML VIAL (J2250 PER 1MG) As Ordered ONE; -NS 1,000 ML IV SCH; -ceFAZolin 2 GM/D5W 50 ML IV BAG (J0690 PER 500MG) As Ordered ONE; -ceFAZolin SOD 2 GM in IV 1 EA IV ONE; -diphenhydrAMINE 50MG/ML VIAL (J1200) As Ordered ONE; -fentaNYL 100 MCG/2 ML INJECTION (J3010) As Ordered ONE
[2020-10-29 08:35] VITALS: BP 119/76
--- NOTE | 2020-10-30 14:34 | IRPN ---
[facility] IR Progress Note IR Progress Note DATE: Oct 29, 2020 FOLLOW-UP: Status post port removal. Patient states he is doing well. No pain, no fevers or chills. ON EXAMINATION: Port removal site appears to be healing well. Steri-Strips have fallen off. No redness, or discharge. IMPRESSION: Doing well status post port removal. No further follow-up scheduled unless initiated by patient and/or referring provider. Thank you for this referral Allergies Coded Allergies: erythromycin base (Verified Allergy, Intermediate, TONGUE SWELLING, 04/27/19) VS,Fishbone, I+O VS, Fishbone, I+O Vital Signs Date Time Temp Pulse Resp B/P (MAP) Pulse Ox O2 Delivery O2 Flow Rate FiO2 10/29/20 08:35 97.8 71 20 119/76 (90) 97 Room Air DAVE HINSON MD Oct 30, 2020 14:34
== END ==
LOC: M IRPOV 08:33
PROVIDERS: ATTEND Radiology Diagnostic Radiology
DX: Z48.812 Encounter for surgical aftercare following surgery on the circulatory system (principal)

== ENCOUNTER → 2021-04-17 | Outpatient (CLI) | payer MEDICARE, BC ==
[~2021-04-17] MED LIST changes: +OMEP-218 PO
--- NOTE | 2021-04-17 11:25 | REP ---
INDICATION: LUNG NODULES COMPARISON: Multiple the latest 07/29/2020 a contrast-enhanced exam TECHNIQUE: Standard helical technique without intravenous contrast FINDINGS: There is no significant change in the appearance of the mediastinum or pulmonary mariama. Nonenlarged lymph nodes are noted status quo. Note is again made of previous operative procedure secondary to gastric pull-through procedure. There is no significant change in the appearance of the imaged upper abdomen or imaged osseous structures. Evaluation of the lung orellana shows heavy but stable appearing biapical pleuroparenchymal scarring. There is mild lung field hyperexpansion and cylindrical bronchiectasis status quo. No new abnormal nodules, masses, or opacities have developed. IMPRESSION: Stable appearing chronic changes. <Electronically signed by Rao Castellanos > 04/17/21 [id number]
== END ==
LOC: M RAD 10:31
PROVIDERS: ATTEND Physician Assistant Surgical
DX: R91.8 Other nonspecific abnormal finding of lung field (principal)

== ENCOUNTER → 2023-11-25 | Outpatient (CLI) | payer MEDICARE ==
[~2023-11-25] MED LIST changes: +CLAR1TAB13 PO; +GASTROGRAFIN SOLUTION 30ML As Ordered ONE; +ISOVUE-370 76% 100ML VIAL As Ordered ONE; -LIDO1CRE42 TOP; +LIDO30CR18 TOP; +LOPE1LIQ PO; -LOPE1SUS PO; +OMEP-173 PO; -OMEP-218 PO; +OMEP40CA4 PO; +ONDA-284 PO; -ONDA8TAB8 PO
== END ==
LOC: M RAD 11:40
PROVIDERS: ATTEND Internal Medicine Medical Oncology
DX: C15.9 Malignant neoplasm of esophagus, unspecified (principal)
CPT/HCPCS: 71260; 74178; Q9963; Q9967

== ENCOUNTER → 2024-11-20 | Outpatient (CLI) | payer MEDICARE ==
[~2024-11-20] MED LIST changes: +ACET-1758 PO; -GASTROGRAFIN SOLUTION 30ML As Ordered ONE; +ISOVUE-370 76% 100 ML VIAL As Ordered ONE; -ISOVUE-370 76% 100ML VIAL As Ordered ONE; -TGT160SU PO
== END ==
LOC: M RAD 11:21
PROVIDERS: ATTEND Nurse Practitioner Women's Health
DX: C15.9 Malignant neoplasm of esophagus, unspecified (principal); J47.9 Bronchiectasis, uncomplicated; I25.10 Atherosclerotic heart disease of native coronary artery without angina pectoris; R59.0 Localized enlarged lymph nodes
CPT/HCPCS: 70491; 71260; 74177; Q9967